=== PATIENT | female | born 2000 | race African-American/Black ===

== ENCOUNTER 2021-05-21 12:39 | Emergency (ER) | payer MEDICAID ==
[~2021-05-21] VITALS: Ht 154.9 cm; Wt 53.0 kg
[2021-05-21] MEDS ORDERED: ACETAMINOPHEN 325MG TABLET PO STA (12:44)
[2021-05-21 13:29] LABS: BASOPHILS % 0.2 % (0.0-2.0); EOSINOPHILS % 0.2 % (0.0-5.0); HEMATOCRIT. 35.2 % (36.0-48.0); HEMOGLOBIN. 11.6 g/dL (12.0-16.0); LYMPHOCYTES % 8.9 % (20.0-50.0); MEAN CORPUSCULAR HEMOGLOBIN 29.3 pg (28.0-32.0); MEAN CORPUSCULAR VOLUME 88.9 fL (81.0-99.0); MONOCYTES % 3.9 % (2.0-8.0); NEUTROPHILS % 86.8 % (40.0-76.0); PLATELET 283 x1000/uL (130-400); RED BLOOD CELL COUNT 3.96 mill/uL (4.2-5.4); RED CELL DISTRIBUTION WIDTH 13.7 % (11.6-14.6)
[2021-05-21 13:35] LABS: CHLORIDE 109 mEq/L (98-107)
[2021-05-21 13:36] LABS: CLARITY URINE CLOUDY (CLEAR); COLOR URINE YELLOW (YELLOW); KETONES URINE NEGATIVE (NEGATIVE); LEUKOCYTE ESTERASE URINE 1+ (NEGATIVE); NITRITE URINE NEGATIVE (NEGATIVE); OCCULT BLOOD URINE 2+ (NEGATIVE); PH URINE >=9.0 (4.5-8.0); PROTEIN URINE 3+ (NEGATIVE); SPECIFIC GRAVITY URINE 1.016 (1.005-1.030)
[2021-05-21 13:59] LABS: B-HCG QUANTITATIVE 92629 mIU/mL (<3)
[2021-05-21] MEDS ORDERED: CEFTRIAXONE 1 G PREMIX 50 ML IV ONE (15:30)
[2021-05-21] MEDS ORDERED: SODIUM CHLORIDE 0.9% 1,000 ML IV ONE (18:15)
[2021-05-21] MEDS ORDERED: ACETAMINOPHEN 325MG TABLET PO ONE (20:30)
[2021-05-21] MEDS ORDERED: CEPH500T MT (20:47)
[2021-05-21] MEDS ORDERED: TOPUD PO (20:48)
[2021-05-21 21:04] VITALS: BP 97/55
== END 2021-05-21 21:06 | disposition home or self-care (01) ==
LOC: ER 12:39 → CANBEDREQ 21:13
DX: O23.01 Infections of kidney in pregnancy, first trimester (principal); Z3A.13 13 weeks gestation of pregnancy
CPT/HCPCS: 36415; 72195; 74181; 76700; 76801; 76817; 80053; 81003; 81025; 83690; 84702; 85025; 86850; 86900; 86901; 87077; 87086; 87186; 96365; 96366; 99285; J0696; J7030